=== PATIENT | female | born 1955 | race Caucasian/White ===

== ENCOUNTER 2017-05-08 22:24 | Emergency (ER) | payer OTHER, MEDICAID ==
[~2017-05-08 22:24] MED LIST: A/B OTIC15 ML; AMIODARONE HCL200 MG PEG; AMIODARONE HCL200 MG PO; ASCO-CAPS-500500 MG PO; BACTRIM DS1 TAB PO; BACTROBAN2% TP; COLACE100 MG PO; DAILY MULTIPLE1 TAB PO; DULCOLAX5 MG PO; GOOD SENSE ASPI81 M3 PEG; HIB240 TP; KEP500 GT; LAXATIVE5 M1 PO; LEVOTHROID SOD0.1 MG PO; LEVOTHYROXIN0.125 M2 PO; NEXIUM40 MG PEG; NORCO1 TA2 PO; ORAZINC 220220 MG PO; PRAVASTATIN20 M1 PO; REGL GT; SENOKOT NATURA8.6 M1 GT; SODIUM BICARBO650 MG PEG; TYLENOL325 MG PO; UNA3I IV; VENTOLIN H0.09 MG/A1; [UNRECOGNIZED DRUG - OTHER] PO
[2017-05-09 01:18] VITALS: BP 119/72
== END 2017-05-09 01:18 | disposition home or self-care (01) ==
LOC: ED 22:24
DX: J18.9 Pneumonia, unspecified organism (principal); N39.0 Urinary tract infection, site not specified; E03.9 Hypothyroidism, unspecified; Z79.899 Other long term (current) drug therapy
CPT/HCPCS: Q0092

== ENCOUNTER 2017-05-29 15:30 | Emergency (ER) | payer OTHER, MEDICAID ==
[~2017-05-29] VITALS: Ht 162.6 cm; Wt 81.6 kg
[2017-05-29 15:34] VITALS: BP 105/65
[2017-05-29 18:17] LABS: UA SPECIFIC GRAVITY 1.015 (1.005-1.035); microscopic required? YES; urine erythrocyte NEGATIVE (NEGATIVE)
== END 2017-05-29 18:50 | disposition home or self-care (01) ==
LOC: ED 15:30
PROVIDERS: Emergency Medicine
DX: K94.23 Gastrostomy malfunction (principal); N39.0 Urinary tract infection, site not specified
CPT/HCPCS: Q9967

== ENCOUNTER 2017-08-02 17:59 | Emergency (ER) | payer OTHER, MEDICAID ==
[~2017-08-02] VITALS: Ht 157.5 cm; Wt 68.0 kg
[2017-08-02 18:55] VITALS: Ht 157.5 cm; Wt 68.0 kg
[2017-08-02 20:40] VITALS: BP 122/70
== END 2017-08-02 20:40 | disposition home or self-care (01) ==
LOC: ED 17:59
DX: Z43.1 Encounter for attention to gastrostomy (principal)
CPT/HCPCS: Q0092; Q9967

== ENCOUNTER 2017-08-22 13:13 | Inpatient (IN) | payer OTHER, MEDICAID ==
[~2017-08-22] VITALS: Ht 157.5 cm; Wt 67.6 kg
[~2017-08-22 13:13] MED LIST changes: -ASCO-CAPS-500500 MG PO; +ASCORBIC ACID500 M1 PO; -LEVOTHROID SOD0.1 MG PO; +SYNTHROID0.1 MG PO
[2017-08-22 19:39] VITALS: BP 134/68
[2017-08-22 21:03] LABS: BASOPHIL % 0.2 % (0-2); PLATELET COUNT 188 x10^3mcL (130-400); RED CELL DISTRIBUTION WIDTH 14.3 % (11.5-14.5)
[2017-08-22 21:30] LABS: CHOLESTEROL/HDL RATIO 3.7; MAGNESIUM 1.8 mg/dL (1.8-2.4); PHOSPHOROUS 2.6 mg/dL (2.5-4.9)
[2017-08-22 21:40] LABS: FREE T4 1.61 ng/dL (0.76-1.46)
[2017-08-22 21:42] LABS: FREE THYROXINE INDEX 5.7 ug/dL (1.4-4.5); T4(THYROXINE) 19.6 ug/dL (4.7-13.3)
[2017-08-22 22:02] LABS: ALBUMIN 3.4 g/dL (3.4-5.0); BILIRUBIN TOTAL 0.34 mg/dL (0.20-1.00); CALCIUM 8.6 mg/dL (8.5-10.1); CARBON DIOXIDE 22.9 mmol/L (21-32); CREATININE SERUM 1.2 mg/dL (0.6-1.0); POTASSIUM SERUM 3.9 mmol/L (3.5-5.1); TOTAL PROTEIN, SERUM 7.6 g/dL (6.4-8.2)
[2017-08-22 22:04] LABS: T3 TOTAL 0.82 ng/mL
[2017-08-23 06:48] LABS: BASOPHIL % 0.2 % (0-2); PLATELET COUNT 175 x10^3mcL (130-400); RED CELL DISTRIBUTION WIDTH 14.2 % (11.5-14.5)
[2017-08-23 07:21] LABS: CALCIUM 8.5 mg/dL (8.5-10.1); CARBON DIOXIDE 20.4 mmol/L (21-32); MAGNESIUM 1.9 mg/dL (1.8-2.4); PHOSPHOROUS 2.9 mg/dL (2.5-4.9); POTASSIUM SERUM 3.8 mmol/L (3.5-5.1)
[2017-08-23 08:37] VITALS: BP 124/69
[2017-08-23 11:55] VITALS: BP 119/71
[2017-08-23 18:05] VITALS: BP 116/65
[2017-08-23 20:54] VITALS: BP 115/65
[2017-08-24] VITALS (7 sets, daily range): BP systolic 105–127; BP diastolic 54–84; Ht 157.5 cm; Wt 67.6 kg
[2017-08-24 07:24] LABS: BASOPHIL % 0.3 % (0-2); PLATELET COUNT 187 x10^3mcL (130-400); RED CELL DISTRIBUTION WIDTH 14.1 % (11.5-14.5)
[2017-08-24 07:43] LABS: CALCIUM 8.8 mg/dL (8.5-10.1); CREATININE SERUM 1.3 mg/dL (0.6-1.0); POTASSIUM SERUM 4.2 mmol/L (3.5-5.1)
[2017-08-24] MEDS ORDERED: LEVAQUIN750 MG GT (10:22)
[2017-08-24] MEDS ORDERED: CLINDAMYCIN HC300 MG GT (10:23)
[2017-08-25 05:09] VITALS: BP 100/64
[2017-08-25 07:24] LABS: BASOPHIL % 0.2 % (0-2); PLATELET COUNT 214 x10^3mcL (130-400); RED CELL DISTRIBUTION WIDTH 13.8 % (11.5-14.5)
[2017-08-25 07:25] LABS: CALCIUM 8.8 mg/dL (8.5-10.1); CARBON DIOXIDE 23.1 mmol/L (21-32); CREATININE SERUM 1.3 mg/dL (0.6-1.0)
[2017-08-25 08:33] VITALS: BP 117/70
[2017-08-25 13:35] VITALS: BP 124/71
[2017-08-25 17:14] VITALS: BP 118/65
[2017-08-25 21:51] VITALS: BP 126/62
[2017-08-26 06:03] VITALS: BP 123/66
[2017-08-26 07:29] LABS: CALCIUM 8.9 mg/dL (8.5-10.1); CREATININE SERUM 1.2 mg/dL (0.6-1.0); POTASSIUM SERUM 3.8 mmol/L (3.5-5.1)
[2017-08-26 08:09] LABS: BASOPHIL % 0.2 % (0-2); PLATELET COUNT 216 x10^3mcL (130-400)
[2017-08-26 09:11] VITALS: BP 117/63
[2017-08-26 12:36] VITALS: BP 100/52
[2017-08-26 17:26] VITALS: BP 103/57
[2017-08-26 21:33] VITALS: BP 128/67
[2017-08-27 05:59] VITALS: BP 123/69
[2017-08-27 07:49] LABS: BASOPHIL % 0.2 % (0-2); PLATELET COUNT 241 x10^3mcL (130-400); RED CELL DISTRIBUTION WIDTH 14.5 % (11.5-14.5)
[2017-08-27 08:02] LABS: CALCIUM 8.9 mg/dL (8.5-10.1); CARBON DIOXIDE 22.5 mmol/L (21-32); CREATININE SERUM 1.2 mg/dL (0.6-1.0); POTASSIUM SERUM 4.1 mmol/L (3.5-5.1)
[2017-08-27 10:04] VITALS: BP 123/61
[2017-08-27] MEDS ORDERED: MUCINEX600 MG PO (12:37)
[2017-08-27] MEDS ORDERED: LAC GT (12:37)
[2017-08-27 14:00] VITALS: BP 112/61
[2017-08-27] MEDS ORDERED: ROBL GT (14:15)
[2017-08-27 14:47] VITALS: BP 123/61
[2017-08-27 17:08] VITALS: BP 113/61
[2017-08-27 21:10] VITALS: BP 134/67
[2017-08-28 05:41] VITALS: BP 116/62
[2017-08-28 09:20] VITALS: BP 106/66
[2017-08-28 13:40] VITALS: BP 115/60
[2017-08-28 17:38] VITALS: BP 112/60
[2017-08-28 21:51] VITALS: BP 110/56
[2017-08-29 05:16] VITALS: BP 95/59
[2017-08-29 10:03] VITALS: BP 102/53; BP 176/70
[2017-08-29 13:33] VITALS: BP 112/60
== END 2017-08-29 15:30 | disposition home or self-care (01) | DRG 177 ==
LOC: ED 13:13 → DU 18:05 → MU 08-28 12:57
PROVIDERS: Family Medicine; Student in an Organized Health Care Education/Training Program
DX: J69.0 Pneumonitis due to inhalation of food and vomit (principal); N17.0 Acute kidney failure with tubular necrosis; G81.91 Hemiplegia, unspecified affecting right dominant side; R47.01 Aphasia; R13.12 Dysphagia, oropharyngeal phase; T14.90XS Injury, unspecified, sequela; J06.9 Acute upper respiratory infection, unspecified; E86.0 Dehydration; R74.0 Nonspecific elevation of levels of transaminase and lactic acid dehydrogenase [LDH]; K80.20 Calculus of gallbladder without cholecystitis without obstruction; E89.0 Postprocedural hypothyroidism; E78.5 Hyperlipidemia, unspecified; Z68.27 Body mass index [BMI] 27.0-27.9, adult; Z93.1 Gastrostomy status; Z87.820 Personal history of traumatic brain injury; V09.9XXS Pedestrian injured in unspecified transport accident, sequela
CPT/HCPCS: 83880; 84439; 97530-GP; J1956; J3490; J7030; J7620; Q0092

== ENCOUNTER 2019-08-21 13:02 | Emergency (ER) | payer OTHER, MEDICAID ==
[~2019-08-21] VITALS: Ht 152.4 cm; Wt 63.5 kg
[~2019-08-21 13:02] MED LIST changes: +CLINDAMYCIN HC300 MG GT; +LAC GT; +LEVAQUIN750 MG GT; +MUCINEX600 MG PO; +ROBL GT
[2019-08-21 13:45] VITALS: Ht 152.4 cm; Wt 63.5 kg
[2019-08-21 18:52] VITALS: BP 101/62
== END 2019-08-21 18:52 | disposition home or self-care (01) ==
LOC: ED 13:02
DX: Z46.59 Encounter for fitting and adjustment of other gastrointestinal appliance and device (principal); E03.9 Hypothyroidism, unspecified
CPT/HCPCS: Q0092; Q9967

== ENCOUNTER 2020-02-22 12:59 | Observation (INO) | payer OTHER, MEDICAID, SELFPAY ==
[~2020-02-22] VITALS: Ht 157.5 cm; Wt 57.2 kg
[2020-02-22 14:23] LABS: BASOPHIL % 0.2 % (0-2); PLATELET COUNT 147 x10^3mcL (130-400); RED CELL DISTRIBUTION WIDTH 13.8 % (11.5-14.5)
[2020-02-22 14:34] LABS: CALCIUM 8.8 mg/dL (8.5-10.1); CARBON DIOXIDE 20.4 mmol/L (21-32); CHLORIDE SERUM 112 mmol/L (98-107); GFR1 59 mL/min; GLUCOSE SERUM 135 mg/dL (74-106); SODIUM SERUM 146 mmol/L (136-145)
[2020-02-22 14:45] LABS: ALBUMIN 3.1 g/dL (3.4-5.0); ALKALINE PHOSPHATASE 116 U/L (46-116); ALT/SGPT 49 U/L (14-59); AST/SGOT 50 U/L (15-37); BILIRUBIN TOTAL 0.39 mg/dL (0.20-1.00); C REACTIVE PROTEIN 1.7 mg/dL (<=0.9); TOTAL PROTEIN, SERUM 7.6 g/dL (6.4-8.2)
[2020-02-22 14:48] LABS: microscopic required? YES; urine erythrocyte NEGATIVE (NEGATIVE)
[2020-02-22 18:04] LABS: CHOLESTEROL/HDL RATIO 4.6
[2020-02-22 21:23] VITALS: BP 134/59
[2020-02-23 05:15] VITALS: BP 138/70
[2020-02-23 07:21] LABS: BASOPHIL % 0.2 % (0-2); PLATELET COUNT 148 x10^3mcL (130-400); RED CELL DISTRIBUTION WIDTH 13.9 % (11.5-14.5)
[2020-02-23 07:54] LABS: C REACTIVE PROTEIN 1.8 mg/dL (<=0.9); CALCIUM 8.7 mg/dL (8.5-10.1); CARBON DIOXIDE 19.2 mmol/L (21-32); CREATININE SERUM 1.1 mg/dL (0.6-1.0); MAGNESIUM 1.9 mg/dL (1.8-2.4); PHOSPHOROUS 2.8 mg/dL (2.5-4.9); POTASSIUM SERUM 3.6 mmol/L (3.5-5.1)
[2020-02-23 09:28] VITALS: BP 150/60
[2020-02-23 13:03] VITALS: BP 97/56
[2020-02-23 17:21] VITALS: BP 102/61
[2020-02-23 21:27] VITALS: BP 114/63
[2020-02-24 06:40] VITALS: BP 135/72
[2020-02-24 08:00] VITALS: BP 138/74
[2020-02-24 11:10] LABS: C REACTIVE PROTEIN 2.8 mg/dL (<=0.9); CALCIUM 8.6 mg/dL (8.5-10.1); CARBON DIOXIDE 20.1 mmol/L (21-32); PHOSPHOROUS 2.3 mg/dL (2.5-4.9); POTASSIUM SERUM 3.4 mmol/L (3.5-5.1)
[2020-02-24 11:36] LABS: BASOPHIL % 0.1 % (0-2); PLATELET COUNT 150 x10^3mcL (130-400); RED CELL DISTRIBUTION WIDTH 14.1 % (11.5-14.5)
[2020-02-24 12:27] VITALS: BP 124/68
[2020-02-24 17:00] VITALS: BP 110/70
[2020-02-24 21:29] VITALS: BP 114/62
[2020-02-25 06:14] VITALS: BP 116/68
[2020-02-25 07:10] LABS: BASOPHIL % 0.2 % (0-2); PLATELET COUNT 164 x10^3mcL (130-400); RED CELL DISTRIBUTION WIDTH 13.8 % (11.5-14.5)
[2020-02-25 07:32] LABS: C REACTIVE PROTEIN 2.5 mg/dL (<=0.9); CALCIUM 8.8 mg/dL (8.5-10.1); CARBON DIOXIDE 20.9 mmol/L (21-32); MAGNESIUM 2.2 mg/dL (1.8-2.4); PHOSPHOROUS 2.4 mg/dL (2.5-4.9); POTASSIUM SERUM 3.9 mmol/L (3.5-5.1)
[2020-02-25 09:10] VITALS: BP 117/60
[2020-02-25 10:27] LABS: BILIRUBIN DIRECT 0.18 mg/dL (0.0-0.2); BILIRUBIN TOTAL 0.43 mg/dL (0.20-1.00); TOTAL PROTEIN, SERUM 7.9 g/dL (6.4-8.2)
[2020-02-25 10:30] LABS: ALBUMIN 3.2 g/dL (3.4-5.0)
[2020-02-25 12:22] VITALS: BP 103/67
[2020-02-25 17:07] VITALS: BP 115/72
[2020-02-25 19:40] VITALS: BP 110/65
[2020-02-25 22:16] VITALS: BP 110/54
[2020-02-26 05:57] VITALS: BP 111/70
[2020-02-26 07:41] LABS: BASOPHIL % 0.3 % (0-2); PLATELET COUNT 186 x10^3mcL (130-400); RED CELL DISTRIBUTION WIDTH 13.7 % (11.5-14.5)
[2020-02-26 08:24] LABS: ALKALINE PHOSPHATASE 93 U/L (46-116); ALT/SGPT 77 U/L (14-59); AST/SGOT 66 U/L (15-37); BILIRUBIN DIRECT 0.19 mg/dL (0.0-0.2); BILIRUBIN TOTAL 0.3 mg/dL (0.20-1.00); CALCIUM 8.5 mg/dL (8.5-10.1); CARBON DIOXIDE 19.4 mmol/L (21-32); CHLORIDE SERUM 110 mmol/L (98-107); CREATININE SERUM 0.9 mg/dL (0.6-1.0); GFR1 > 60 mL/min; GLUCOSE SERUM 130 mg/dL (74-106); POTASSIUM SERUM 3.8 mmol/L (3.5-5.1); SODIUM SERUM 144 mmol/L (136-145); TOTAL PROTEIN, SERUM 7.3 g/dL (6.4-8.2)
[2020-02-26 08:26] LABS: ALBUMIN 2.8 g/dL (3.4-5.0)
[2020-02-26 08:57] VITALS: BP 1118/66
[2020-02-26 11:51] VITALS: BP 107/59
[2020-02-26 14:25] VITALS: BP 107/59
[2020-02-26 17:09] VITALS: BP 113/62
[2020-02-26 20:06] VITALS: BP 106/58
[2020-02-27 06:19] VITALS: BP 106/60
[2020-02-27 09:22] VITALS: BP 111/48
[2020-02-27 14:04] VITALS: BP 101/53
[2020-02-27] MEDS ORDERED: DECADRON6 MG PO (14:24)
[2020-02-27] MEDS ORDERED: KEFLEX500 M1 PO (14:27)
[2020-02-27] MEDS ORDERED: ELIQUIS2.5 MG PO (14:30)
[2020-02-27 18:05] VITALS: BP 104/59
[2020-02-27 18:23] VITALS: BP 104/59
[2020-02-27 20:52] VITALS: Ht 157.5 cm; Wt 57.2 kg
== END 2020-02-27 18:50 | disposition home health service (06) ==
LOC: ED 12:59 → DU 15:39
PROVIDERS: Emergency Medicine; ADMIT Family Medicine; ATTEND Family Medicine
DX: U07.1 COVID-19 (principal); A41.9 Sepsis, unspecified organism; J12.9 Viral pneumonia, unspecified; E44.0 Moderate protein-calorie malnutrition; N39.0 Urinary tract infection, site not specified; N17.0 Acute kidney failure with tubular necrosis; E46 Unspecified protein-calorie malnutrition; R53.83 Other fatigue; J96.01 Acute respiratory failure with hypoxia; Z86.73 Personal history of transient ischemic attack (TIA), and cerebral infarction without residual deficits; R13.10 Dysphagia, unspecified
CPT/HCPCS: 36600; 83880; 85378; G0378; J0456; J0696; J1100; J1644; J3535; J7050; Q0092; Q9967; U0003-CS